=== PATIENT | female | born 1970 | race Caucasian/White ===

== ENCOUNTER 2022-09-25 20:53 | Emergency (ER) | payer BC ==
[~2022-09-25] VITALS: Ht 175.3 cm; Wt 61.2 kg
[2022-09-25 21:21] VITALS: BP 177/141
== END 2022-09-26 | disposition home or self-care (01) ==
LOC: ER 20:53
DX: S93.402A Sprain of unspecified ligament of left ankle, initial encounter (principal); W10.8XXA Fall (on) (from) other stairs and steps, initial encounter
CPT/HCPCS: 73610